=== PATIENT | male | born 1965 | race Caucasian/White ===

== ENCOUNTER 2021-04-27 14:13 | Outpatient (CLI) | payer OTHER, SELFPAY ==
--- NOTE | 2021-04-27 | ECG_ITS ---
Measurements Intervals [place] Rate: 51 P: 61 AR: 175 QRS: 75 QRSD: 115 T: 93 QT: 434 QTc: 402 Interpretive Statements SINUS BRADYCARDIA BORDERLINE ST-T WAVE ABNORMALITY- ANT/HIGH LAT LEADS BORDERLINE ECG Electronically Signed On 04-27-2021 15:33:55 CDT by Valdemar Piper D.O.
== END 2021-04-27 14:14 | disposition home or self-care (01) ==
LOC: ANHIMG 14:39 → ANHCARD 14:51
PROVIDERS: PCP Internal Medicine; Visit Provider Podiatrist Foot & Ankle Surgery
DX: R03.0 Elevated blood-pressure reading, without diagnosis of hypertension (principal)
CPT/HCPCS: 93005

== ENCOUNTER 2023-06-07 02:58 | Day surgery (SDC) | payer OTHER, SELFPAY ==
[2023-05-25 13:44] VITALS: BMI 27.8
[2023-06-07 12:17] VITALS: BP 113/79; PULSE 57; RESP 20; TEMP 36.4; O2SAT 100; BMI 26.6
--- NOTE | 2023-06-07 12:25 | PM.HPGS ---
History of Present Illness History of Present Illness Consent: Risks, benefits, and alternatives have been discussed and questions answered. Patient agrees to proceed with procedure. Chief complaint: epigastric pain Narrative: Charlie Starr is a 57 year old male Presents for EGD. Patient reports over last 3 months has had epigastric pain. He states that improves on drinking milk. His rather hard for him to describe. Not particularly burning in nature. Recently seen by primary care service. With given a trial of pantoprazole. Over last 4 months this may have helped ease the pain. During the same interval of time he has been more mindful of his diet and encouraging weight loss. He notices less discomfort. He feels may be is abdominal pain worsens the day after drinking beer. Family history is noncontributory. Patient referred for EGD to evaluate this epigastric discomfort. Review of Systems Review of Systems: Review of systems noncontributory. [facility] [place] Social History Social History (Updated 05/13/23 @ 07:52 by Crystal Mckay [facility]) Smoking status: Never smoker Tobacco type: smokeless tobacco Smokeless tobacco user: chewing tobacco Additional smoking assessment comments: when golfing Alcohol intake: current Alcohol use details: social Substance use: unknown Substance use type: does not use Current Housing: Decline to Answer Concerned About Future Housing: Decline to Answer Difficulty Paying Gas/Electric Bills: Decline to Answer Difficulty Paying for Meds: Decline to Answer Currently Unemployed: Decline to Answer Education: Decline to Answer Difficulty w/ Childcare or Family Care: Decline to Answer Living arrangements: with family Spiritual care concerns: No Meds Home Medications and Allergies Home Medications Medication Instructions Recorded Confirmed Type pantoprazole 40 mg tablet,delayed 40 mg PO QAM #30 tabs 02/21/23 05/25/23 Rx release tamsulosin 0.4 mg capsule 0.4 mg PO DAILY 05/25/23 05/25/23 History Allergies Allergy/AdvReac Type Severity Reaction Status Date / Time No Known Allergies Allergy Verified 06/07/23 12:16 Vital Signs Vital Signs - 24 hr 06/07/23 12:17 Temperature 97.5 F L Pulse Rate 57 L Respiratory Rate 20 Blood Pressure 113/79 Pulse Oximetry 100 Oxygen Delivery Room Air Exam Narrative: Physical exam reveals patient to be alert. Vital signs stable. HEENT exam is unremarkable. Patient is anicteric. Lungs are clear to auscultation and percussion. Heart is without murmur or extra sounds. Abdomen bowel sounds are present soft nontender with no organomegaly. Digital external rectal exam normal. Assessment and Plan Assessment and plan (1) Epigastric abdominal pain: Code(s): R10.13 - Epigastric pain Status: Acute Assessment and Plan: Patient reports several months worth of epigastric pain is poorly described. Appears to improve with drinking milk. Pantoprazole may have helped at. Perhaps somewhat worse with drinking beer. He denies chest pain or dysphagia. Family history noncontributory. EGD to be performed today to evaluate more thoroughly.
[2023-06-07] MEDS: LACTATED RINGERS 1,000 ML 150 ML IV CONT (12:29)
--- NOTE | 2023-06-07 12:32 | WPDANESEPPF ---
Anes - Initial Pre Proc Eval Procedure: Operation Date: 06/07/23 13:00 Proposed Procedures p Esophagogastroduodenoscopy - Myke Brizuela MD Date/Time: 06/07/23 12:32 Surgeon: Myke Brizuela MD Pre Op Diagnosis: epigastric pain Patient Data Age: 57 Gender: M Height: 1.85 m Weight: 91.8 kg Last Vital Signs Temp 97.5 F L 06/07/23 12:17 Pulse 57 L 06/07/23 12:17 Resp 20 06/07/23 12:17 BP 113/79 06/07/23 12:17 Pulse Ox 100 06/07/23 12:17 O2 Del Method Room Air 06/07/23 12:17 Allergies Allergy/AdvReac Type Severity Reaction Status Date / Time No Known Allergies Allergy Verified 06/07/23 12:16 Home Medications Medication Instructions Recorded Confirmed Type pantoprazole 40 mg tablet,delayed 40 mg PO QAM #30 tabs 02/21/23 05/25/23 Rx release tamsulosin 0.4 mg capsule 0.4 mg PO DAILY 05/25/23 05/25/23 History Patient hx anesthesia problems: none Family hx anesthesia problems: none Results Review: All pre-operative results and documents have been reviewed as part of the pre-operative evaluation. [facility] Social History Social History (Updated 05/13/23 @ 07:52 by Crystal Mckay [facility]) Smoking status: Never smoker Tobacco type: smokeless tobacco Smokeless tobacco user: chewing tobacco Additional smoking assessment comments: when golfing Alcohol intake: current Alcohol use details: social Substance use: unknown Substance use type: does not use Current Housing: Decline to Answer Concerned About Future Housing: Decline to Answer Difficulty Paying Gas/Electric Bills: Decline to Answer Difficulty Paying for Meds: Decline to Answer Currently Unemployed: Decline to Answer Education: Decline to Answer Difficulty w/ Childcare or Family Care: Decline to Answer Living arrangements: with family Spiritual care concerns: No Anes - Eval Final PreProcedure Day of Procedure 06/07/23 12:32 Patient weight: normal Heart: regular rate and rhythm Lungs: clear to auscultation Airway: Mallampati scale class II Neurological: alert and oriented Last oral intake: >/= 8 hours ASA classification: II Emergent: no Anesthetic plan: proceed Anesthesia type and monitoring: general GIVS and standard monitoring Results Review: All pre-operative results and documents have been reviewed as part of the pre-operative evaluation. Informed Consent: The patient's anesthetic plan and its attendant risks and benefits were discussed with the patient/family/POA. Questions were solicited and answers provided to the satisfaction of the patient/family/POA.
[2023-06-07 14:13] VITALS: BP 100/66; PULSE 64; RESP 17; O2SAT 99
[2023-06-07 14:23] VITALS: BP 106/71; PULSE 45; RESP 16; O2SAT 99
[2023-06-07 14:33] VITALS: BP 114/74; PULSE 62; RESP 18; O2SAT 100
--- NOTE | 2023-06-07 14:48 | SUR.PHASEII ---
shampoo person reported pt had sinus mj in the 40s at times during procedure. pts heart rate was noted to be in the 40s sinus mj during postop but heart rate was noted to be in the 60s also. bp stable. pt denied any symptoms with this, denies dizziness, feelings of skipped beats and states hes not aware of any issues with low heart rate at home. recommended to pt and they check his heart rate at home when possible and to speak with pcp if any symptoms are noted. both voiced understanding.
== END 2023-06-07 14:40 | disposition home or self-care (01) ==
PROVIDERS: PCP Internal Medicine; Visit Provider Internal Medicine Gastroenterology
PROC: 0DJ08ZZ Inspection of Upper Intestinal Tract, Via Natural or Artificial Opening Endoscopic (ICD-10-PCS; CPT 43235; principal; 2023-06-07 13:00)
DX: R10.13 Epigastric pain (principal); F17.220 Nicotine dependence, chewing tobacco, uncomplicated
CPT/HCPCS: 43239; 87081; J2001; J2704; J7120